=== PATIENT | female | born 1960 | race Asian ===

== ENCOUNTER 2017-04-08 20:27 | Observation (INO) ==
[2017-04-08] MEDS ORDERED: *HR* Morphine 2 MG/ML SYRINGE IVP ONE ×2 (20:54→21:38)
[2017-04-08] MEDS ORDERED: *HR* Labetalol 100 MG/20 ML MDV IVP ONE (20:54)
[2017-04-08] MEDS ORDERED: Ondansetron 4 MG/2 ML VIAL IVP ONE ×2 (20:54→21:38)
--- NOTE | 2017-04-08 20:57 | Emergency Department Note ---
Disposition Clinical Impression: Hypertensive emergency Headache Qualifiers: Headache type: unspecified Headache chronicity pattern: acute headache Intractability: not intractable Qualified Code(s): R51 - Headache Hypertension Qualifiers: Hypertension type: unspecified Qualified Code(s): I10 - Essential (primary) hypertension Disposition: Admitted As Inpatient Condition: Fair Referrals: Patricia Fernandez MD [Primary Care Provider] - Forms: ED Satisfaction Letter General Adult HPI - General Chief complaint: ED Nausea/Vomiting/Diarrhea Stated complaint: n/v, dizzy Time Seen by Provider: 04/08/17 20:43 Source: patient Nursing Notes Reviewed: Yes Vital Signs Reviewed: Yes - History of Present Illness HPI Narrative: 56-year-old female presents emergency Department with one-day history of headache and dizziness. Patient has a history of hypercholesterolemia and non- medication requiring hypertension. Last evaluated summertime. Patient does not speak Estonian she speaks Korean and board setter was used for history and physical. Symptoms started sometime earlier today she says she feels dizzy almost like the room is spinning she does not feel like she is going to pass out she feels some generalized weakness as well also with a significant headache which she cannot further describe other than a minor head. No fevers or chills no abdominal pain. No chest pain or short of breath. Onset (ago): hour(s) Location: head Radiation: non-radiation Pain Severity: moderate Pain Scale: 7 Quality: burning Consistency: constant Improves with: nothing Worsens with: nothing Associated symptoms: Reports: denies other symptoms - Related Data Home Medications Medication Instructions Recorded Confirmed Cholesterol Med 01/07/16 Allergies Allergy/AdvReac Type Severity Reaction Status Date / Time No Known Allergies Allergy Verified 01/07/16 12:45 All systems ED: reviewed and negative except as stated. Constitutional: Reports: as per HPI Eyes: Reports: as per HPI. Denies: eye pain ENT ED: Reports: as per HPI Cardiovascular: Reports: as per HPI Respiratory: Reports: as per HPI Gastrointestinal: Reports: as per HPI Musculoskeletal: Reports: as per HPI Neurological: Reports: headache Psychiatric: Reports: as per HPI Endocrine: Reports: as per HPI Past Medical History - Past Medical History Attestation: Yes The following information was validated with the patient. Medical history: Reports: hypertension Psychiatric history: Reports: no psych history - Social History Smoking Status: Never smoker Smokeless Tobacco Status: No Alcohol use: Reports: rarely Drug use: Reports: none Physical Exam - General Limitations: no limitations General appearance: alert - Head Head exam: atraumatic - Eye Eye exam: Present: normal appearance, PERRL, EOMI - ENT ENT exam: normal exam - Neck Neck exam: Present: normal inspection - Chest Chest inspection: Present: normal inspection - Respiratory Respiratory exam: Present: normal lung sounds bilaterally - Cardiovascular Cardiovascular exam: Present: regular rate, normal rhythm - Abdominal Exam Abdominal exam: Present: soft, Non-Tender - Extremities Exam Extremities exam: Present: normal inspection - Expanded Lower Extremity Exam Hip/Pelvis exam: Present: normal inspection Neurovascular/Tendon exam: Present: normal capillary refill - Back Exam Back exam: Present: normal inspection - Neurological Exam Neurological exam: Present: alert, oriented X3 - Psychiatric Psychiatric exam: Present: normal affect, normal mood Course - Consultations Consultation #1: Discussed with hospitalist at 10:30 PM agreed to admit patient. Vital Signs Temperature 98 F 04/08/17 20:32 Pulse Rate 94 04/08/17 20:32 Respiratory Rate 12 04/08/17 20:32 Blood Pressure 241/143 04/08/17 20:32 O2 Sat by Pulse Oximetry 98 04/08/17 20:32 Temperature 98 F 04/08/17 20:32 Pulse Rate 86 04/08/17 22:13 Respiratory Rate 14 04/08/17 22:13 Blood Pressure 155/94 04/08/17 22:13 O2 Sat by Pulse Oximetry 100 04/08/17 22:13 Oxygen Delivery Oxygen Delivery Room Air Medical Decision Making - MDM Narrative Medical decision making narrative: We will do workup for hypertensive urgency. We will get a CT scan ahead and well as lab testing. We will also treat patient's blood pressure not normalize but to get it down into more tolerable level. May admit patient to the hospital. Patient's blood pressure was improved throughout her stay. CT the head revealed no acute abnormalities. However after 2 doses of antiemetics as well as 2 doses of morphine. Patient still is complaining of headache and dizziness. With intractable headache and the recent hypertension, more comfortable made the patient a hospital. Will discuss case with the hospitalist and arrange for admission for pain management and control of her hypertension. - Lab Data Lab results reviewed: Yes I reviewed the patient's lab results. Result diagrams: 04/08/17 21:02 04/08/17 21:02 Lab Results 04/08/17 04/08/17 04/08/17 Range/Units 21:02 21:02 21:02 WBC 8.6 (4.3-11.1) K/mcL RBC 4.94 (3.82-4.97) M/mcL Hgb 14.5 (11.5-15.4) g/dL Hct 46.2 H (35.3-44.9) % MCV 93.5 (83.0-100.0) fL MCH 29.4 (28.0-33.3) pg MCHC 31.4 L (31.6-35.5) g/dL RDW 12.4 (11.5-14.5) % Plt Count 339 (140-400) K/mcL MPV 10.2 (9.4-12.4) fL Immature Gran % 0.2 (0-4) % Seg Neutrophils % 52.7 % Lymphocytes % 37.7 % Monocytes % 7.9 % Eosinophils % 1.2 % Basophils % 0.3 % Neutrophils # 4.6 (1.6-8.9) K/mcL Lymphocytes # 3.3 (0.6-4.6) K/mcL Monocytes # 0.7 (0.0-1.3) K/mcL Eosinophils # 0.1 (0.0-0.6) K/mcL Basophils # 0.0 (0.0-0.2) K/mcL Sodium 141 (136-145) mEq/L Potassium 3.9 (3.5-4.5) mEq/L Chloride 103 (98-109) mEq/L Carbon Dioxide 33 H (19-29) mEq/L BUN 9 (7-20) mg/dL Creatinine 0.74 (0.57-1.11) mg/dL Est GFR ( Amer) > 60 (> 60) Est GFR (Non-Af Amer) > 60 (> 60) BUN/Creatinine Ratio 12 (6-26) Glucose 164 H (70-99) mg/dL Calculated Osmolality 294 (280-300) Calcium 9.5 (8.6-10.8) mg/dL Troponin I 0.01 (0-0.03) ng/mL TSH 2.329 (0.350-4.840) mcIU/mL - Radiology Data Radiology results reviewed: Yes I reviewed the patient's radiology results. - EKG Data EKG #1 EKG attestation: Yes I reviewed and interpreted this EKG. EKG shows normal: sinus rhythm Rate: normal Rhythm: NSR When compared to previous EKG there are: no significant changes Interpretation: no acute changes Critical Care Time Critical Care Time: Yes Total Critical Care Time: 35 Attestation: Critical care time 35 minutes for hypertensive emergency requiring IV antihypertensive.
[2017-04-08 21:13] LABS: Basophils % 0.3 %; Eosinophils # 0.1 K/mcL (0.0-0.6); Eosinophils % 1.2 %; Hematocrit 46.2 % (35.3-44.9); Hemoglobin 14.5 g/dL (11.5-15.4); Immature Granulocytes % 0.2 % (0-4); Lymphocytes # 3.3 K/mcL (0.6-4.6); Lymphocytes % 37.7 %; Mean Corpuscular HGB Conc 31.4 g/dL (31.6-35.5); Mean Corpuscular Hemoglobin 29.4 pg (28.0-33.3); Mean Corpuscular Volume 93.5 fL (83.0-100.0); Mean Platelet Volume 10.2 fL (9.4-12.4); Monocytes # 0.7 K/mcL (0.0-1.3); Monocytes % 7.9 %; Neutrophils # 4.6 K/mcL (1.6-8.9); Platelet Count 339 K/mcL (140-400); Red Blood Count 4.94 M/mcL (3.82-4.97); Red Cell Distribution Width 12.4 % (11.5-14.5); Segmented Neutrophils % 52.7 %
[2017-04-08 21:25] LABS: BUN/Creatinine Ratio 12 (6-26); Blood Urea Nitrogen 9 mg/dL (7-20); Calcium 9.5 mg/dL (8.6-10.8); Carbon Dioxide 33 mEq/L (19-29); Chloride 103 mEq/L (98-109); Glucose 164 mg/dL (70-99); Osmolality,Calculated 294 (280-300); Potassium 3.9 mEq/L (3.5-4.5); Sodium 141 mEq/L (136-145); eGFR For African Americans > 60 (> 60); eGFR For Non-African Americans > 60 (> 60)
[2017-04-08 21:46] LABS: Thyroid Stimulating Hormone 2.329 mcIU/mL (0.350-4.840)
[2017-04-08] MEDS ORDERED: Ondansetron 4 MG/2 ML VIAL IVP PRN (23:50)
[2017-04-08] MEDS ORDERED: Naloxone 0.4 MG/ML INJ IVP PRN (23:50)
--- NOTE | 2017-04-09 00:17 | Internal Med History&Physical ---
<EugeniacaldannyLuis E silva - Last Filed: 04/09/17 01:53> Date of Encounter: 04/09/17 Time of Encounter: 23:00 Assessment and Plan (1) Hypertensive crisis Current visit: Yes Status: Acute BP upon presentation to ER was 241/143. She was given a dose of labetalol. BP current at 171/108. Neurological assessment was normal. Head CT shows no signs of acute intracranial abnormalities. Creatinine level is normal. Troponin was negative. EKG shows a sinus rhythm with no acute ischemic changes when compared to EKG from 06/03/15. Treatment goal is to keep the SBP between 160-180 for the first 24 hours. - Hydralazine 10 mg IV PRN with parameters. - Low salt diet. - Zofran PRN for nasuea. - Add BECKY-I to medications starting in morning. - Echocardiogram. - Neuro checks q2hr. (2) Headache Current visit: Yes Status: Acute - Tylenol PRN. Qualifiers: Headache type: unspecified Headache chronicity pattern: acute headache Intractability: not intractable Qualified Code(s): R51 - Headache (3) Hypercholesteremia Current visit: Yes Status: Acute - Lipid panel. - Continue home med of lovastatin 40 qd. (4) DVT prophylaxis Current visit: Yes Status: Acute - Lovenox SQ. Internal Medicine - H&P: HPI Chief complaint: SALTER, dizziness, nausea Admitted From: Emergency Dept History of present illness: Ms. Rebollar is a 56 year old female with a PMH of HTN and hypercholesterolemia that presents for SALTER, dizziness, and nausea. She says her symptoms have been occurring for the past 3-4 days. The SALTER have been intermitten, as well has her nausea and dizziness. She denies any vomiting. Patient says the she has had blood pressure issues for the past year, but has never experienced an episode like this before. She has never been on any BP medications. She denies any syncope, focal deficits, weakness, or slurring of speech. She denies any recent illness, fever, chills, chest pain, SOB, abdominal pain, diarrhea, constipation , dysruia, or hematuria. History was obtained through official court interpreter who was at bedside. She was brought to the ER with an elevated BP of 241/143. She was given labetalol. Past Med Surg Social Fam HX - Past Medical History Medical history: hypertension Psychiatric history: no psych history - Social History Smoking Status: Never smoker Smokeless Tobacco Status: No Alcohol use: rarely Drug use: none Internal Medicine - H&P: Meds Cholesterol Med 01/07/16 [History] 3 Allergy/AdvReac Type Severity Reaction Status Date / Time No Known Allergies Allergy Verified 01/07/16 12:45 All Systems PM: A 10-system review of systems was performed and is negative for pertinent findings except as documented above in the HPI. - Constitutional Constitutional: no chills, no fever(s), no weakness - EENT Eyes: no blurry vision, no change in vision, no spots in vision - Cardiovascular Cardiovascular ROS IM: lightheadedness, no chest pain, no dyspnea, no palpitations, no syncope - Respiratory Respiratory: no cough, no dyspnea, no wheezing - Gastrointestinal Gastrointestinal: nausea, no abdominal pain, no constipation, no diarrhea, no vomiting - Genitourinary Genitourinary: no dysuria, no hematuria - Musculoskeletal Musculoskeletal ROS IM: no muscle weakness, no numbness, no tingling - Neurological Neurological ROS: dizziness, headache(s), no focal weakness, no loss of vision, no numbness, no tingling, no weakness - Constitutional Vitals: Temp Pulse Resp BP Pulse Ox 97.8 F 68 20 182/102 98 04/08/17 23:50 04/08/17 23:50 04/08/17 23:50 04/08/17 23:50 04/08/17 23:50 General appearance: Present: A&O X 3, no acute distress, answers questions appropriately - Eye Eye exam: Present: EOMI, PERRL. Absent: nystagmus Pupils: Present: PERRL - ENT ENT exam: Present: mucous membranes moist - Respiratory Respiratory exam: Present: CTAB. Absent: rales, respiratory distress, rhonchi, wheezes - Cardiovascular Cardiovascular exam: Present: RRR, +S1, +S2. Absent: tachycardia - GI/Abdominal GI/Abdominal exam: Present: normal bowel sounds, soft. Absent: guarding, rebound, tenderness - Extremities Exam Extremities exam: Present: full ROM, normal capillary refill, radial pulses palpable and symmetrical. Absent: cyanotic, pedal edema, tenderness Additional comments: Pedal pulses intact and symmetrical bilaterally. - Neurological Exam Neurological exam: Present: alert, CN II-XII intact, oriented X3, no focal deficits, strengths equal and symetr throughout. Absent: facial droop Additional comments: Unable to obtain reflexes as patient was tense and unable to relax limbs. Internal Med - H&P Results - Labs CBC & Chem 7: 04/09/17 00:58 04/09/17 00:58 <Roldan Becker - Last Filed: 04/09/17 02:41> Date of Encounter: 04/09/17 Time of Encounter: 02:32 Past Med Surg Social Fam HX - Past Surgical History Surgical History: other (unknown -- language barrier --> unable to inquire) - Family History Mother History Unknown: Yes Father History Unknown: Yes ROS unobtainable: other (language barrier; no official court interpreter present when I saw patient) - Constitutional Vitals: Temp Pulse Resp BP Pulse Ox 97.8 F 68 20 182/102 98 04/08/17 23:50 04/08/17 23:50 04/08/17 23:50 04/08/17 23:50 04/08/17 23:50 General appearance: Present: no acute distress - Head Head exam: Present: atraumatic, normal inspection - Eye Eye exam: Present: EOMI, PERRL. Absent: scleral icterus Pupils: Present: normal accommodation - ENT ENT exam: Present: mucous membranes moist, normal exam - Neck Neck exam general surgery: Present: full ROM, supple. Absent: tenderness, nuchal rigidity, thyromegaly - Respiratory Respiratory exam: Present: CTAB. Absent: chest wall tenderness, rales, rhonchi , wheezes - Cardiovascular Cardiovascular exam: Present: RRR, +S1, +S2. Absent: diastolic murmur, systolic murmur - GI/Abdominal GI/Abdominal exam: Present: normal bowel sounds, soft. Absent: hepatomegaly, splenomegaly, tenderness - Extremities Exam Extremities exam: Present: full ROM, normal capillary refill, radial pulses palpable and symmetrical. Absent: calf tenderness, cyanotic, tenderness - Back Exam Back exam: Absent: CVA tenderness (L), CVA tenderness (R) - Neurological Exam Neurological exam: Present: no focal deficits, strengths equal and symetr throughout - Psychiatric Psychiatric exam: Present: normal affect, normal mood - Skin Skin exam: Present: dry, warm. Absent: rash Internal Med - H&P Results - Labs CBC & Chem 7: 04/09/17 00:58 04/09/17 00:58 Labs: Short CBC 04/09/17 Range/Units 00:58 WBC 10.1 (4.3-11.1) K/mcL Hgb 13.8 (11.5-15.4) g/dL Hct 43.3 (35.3-44.9) % Plt Count 317 (140-400) K/mcL BMP 04/09/17 00:58 Sodium 141 Potassium 4.7 H Chloride 105 Carbon Dioxide 32 H BUN 10 Creatinine 0.70 Glucose 120 H Calcium 9.6 Liver Function 04/09/17 Range/Units 00:58 Total Bilirubin 0.5 (0.2-1.2) mg/dL AST 40 H (5-34) Units/L ALT 63 H (0-55) Units/L Alkaline Phosphatase 209 H (38-126) Units/L Albumin 3.7 (3.5-5.0) g/dL - EKG Data -: EKG Interpreted by Myself - EKG Data Prior EKG available for review: no EKG comments: 04/09/17 02:35 NSR; no acute changes - Diagnostic Studies Chest x-ray Status: image reviewed by me (negative) - Attending Attestation I discussed the patient INAJA, PMH, ROS, lab data, and exam findings with Dr. Suh. I then saw and examined patient independently as well. Patient is sleeping and easily arousable. She appears in no distress. BP presently is 182/100. [employer] Recruiter is not present and, other than hello and thank you, patient does not seem to understand Malay. Exam is unremarkable as I detailed above. We will trend troponins, monitor with neurochecks closely, and transition to oral antihypertensives later today if BP remains stable. Other than my comments above and noted exam findings, I agree with Dr. Suh.
[2017-04-09] MEDS: Acetaminophen 325 MG TABLET PO PRN ×2 (00:33→12:17)
[2017-04-09 01:34] LABS: Hematocrit 43.3 % (35.3-44.9); Hemoglobin 13.8 g/dL (11.5-15.4); Mean Corpuscular HGB Conc 31.9 g/dL (31.6-35.5); Mean Corpuscular Hemoglobin 29.6 pg (28.0-33.3); Mean Corpuscular Volume 92.9 fL (83.0-100.0); Mean Platelet Volume 10.2 fL (9.4-12.4); Platelet Count 317 K/mcL (140-400); Red Blood Count 4.66 M/mcL (3.82-4.97); Red Cell Distribution Width 12.6 % (11.5-14.5)
[2017-04-09 01:45] LABS: Alanine Aminotransferase 63 Units/L (0-55); Albumin 3.7 g/dL (3.5-5.0); Albumin/Globulin Ratio 0.9 (1.1-2.2); Alkaline Phosphatase 209 Units/L (38-126); Aspartate Amino Transferase 40 Units/L (5-34); BUN/Creatinine Ratio 14 (6-26); Bilirubin,Total 0.5 mg/dL (0.2-1.2); Blood Urea Nitrogen 10 mg/dL (7-20); Calcium 9.6 mg/dL (8.6-10.8); Carbon Dioxide 32 mEq/L (19-29); Chloride 105 mEq/L (98-109); Globulin 4.1 g/dL (2.4-3.5); Glucose 120 mg/dL (70-99); Osmolality,Calculated 292 (280-300); Potassium 4.7 mEq/L (3.5-4.5); Sodium 141 mEq/L (136-145); Total Protein 7.8 g/dL (6.0-8.3); eGFR For African Americans > 60 (> 60); eGFR For Non-African Americans > 60 (> 60)
[2017-04-09 05:39] LABS: Hematocrit 41.7 % (35.3-44.9); Hemoglobin 13.2 g/dL (11.5-15.4); Mean Corpuscular HGB Conc 31.7 g/dL (31.6-35.5); Mean Corpuscular Hemoglobin 29.3 pg (28.0-33.3); Mean Corpuscular Volume 92.7 fL (83.0-100.0); Mean Platelet Volume 9.9 fL (9.4-12.4); Platelet Count 306 K/mcL (140-400); Red Cell Distribution Width 12.6 % (11.5-14.5)
[2017-04-09] MEDS ORDERED: *HR* Enoxaparin 40 MG/0.4 ML SYRINGE SQ SCH (06:00)
[2017-04-09] MEDS ORDERED: *HR* Heparin 5,000 UNIT/ML VIAL SQ SCH (06:00)
[2017-04-09 07:13] VITALS: BP 131/77
[2017-04-09 12:51] LABS: Hepatitis A Antibody IgM Nonreactive (Nonreactive); Hepatitis B Core IgM Nonreactive (Nonreactive); Hepatitis B Surface Antigen Nonreactive (Nonreactive); Hepatitis C Virus Antibody Nonreactive (Nonreactive)
--- NOTE | 2017-04-09 14:14 | Discharge Summary ---
Date of Encounter: 04/09/17 Time of Encounter: 14:12 - Discharge Diagnosis (1) Hypertensive crisis Priority: Primary Status: Resolved (2) Headache Priority: Secondary Status: Acute Qualifiers: Headache type: unspecified Headache chronicity pattern: acute headache Intractability: not intractable Qualified Code(s): R51 - Headache (3) Hypercholesteremia Priority: Secondary Status: Acute (4) DVT prophylaxis Priority: Secondary Status: Acute - Discharge Medications Prescriptions: amLODIPine [Norvasc] 5 mg PO DAILY #30 tablet Home Medications: amLODIPine [Norvasc] 5 mg PO DAILY #30 tablet 04/09/17 [Rx] Allergies/Adverse Reactions: 3 Allergy/AdvReac Type Severity Reaction Status Date / Time No Known Allergies Allergy Verified 01/07/16 12:45 Date of admission: 04/09/17 02:42 Primary care physician: Patricia Fernandez Discharging clinician: Koki Cook Anticipated date of discharge: 04/09/17 - Patient Status Disposition: Home, Self-Care Condition: Good Functional capacity at discharge: independent ambulation Overall status at discharge: patient is progressing back to baseline - Discharge Instructions Instructions: Chronic Hypertension (DC) Follow Up With: Patricia Fernandez MD [Primary Care Provider] - (in 1 week) - Diet and Activity Activity: increase activity as tolerated Diet: low fat, low cholesterol, low salt diet Hospital course: Ms. Rebollar is a 56 year old female patient who presented to the ER with complaints of headaches dizziness and nausea. She has a history of hypertension and hypercholesterolemia and has been taking lovastatin for several years. She had a blood pressure of 241/143 on presentation to the ER. She denied any chest pain, focal weakness numbness or slurred speech. No recent medication changes. CT scan of the head was negative for any acute bleed or stroke. Chest x-ray did not show any acute cardiopulmonary disease. She was given labetalol in the ER intravenously and since then her blood pressure has improved. She has not required any further doses of intravenous medications and her blood pressure has remained well controlled. Patient also had mild elevation in her liver enzymes with AST of 40, ALT of 63 and alkaline phosphatase of 209. Liver ultrasound was done and it showed normal echogenicity of the liver with normal gallbladder and CBD. Hepatitis viral panel was also negative. Most likely her elevated liver enzymes could be due to statin use. At this time I recommend holding off on statin until she gets her liver function panel rechecked. 2-D echocardiogram was done today and patient has a normal ejection fraction of 65% with mild left ventricle and diastolic dysfunction likely due to chronic uncontrolled hypertension. I will place her on amlodipine to control her blood pressure. She is clinically stable to be discharged home at this time. - Time Spent with Patient Total time spent providing and/or coordinating discharge services: Less than 30 minutes (25 min) - Constitutional Vitals: Temp Pulse Resp BP Pulse Ox 97.9 F 77 16 131/77 98 04/09/17 07:11 04/09/17 07:11 04/09/17 07:11 04/09/17 07:11 04/09/17 07:11 General appearance: Present: cooperative, no acute distress Exam: Patient not able to answer questions as she does not speak Serbian and there is no certified lactation counselor available at this time. - Neck Neck exam general surgery: Present: supple, trachea midline. Absent: lymphadenopathy - Cardiovascular Cardiovascular exam: Present: RRR, +S1, +S2. Absent: diastolic murmur, gallop, rubs, systolic murmur - GI/Abdominal GI/Abdominal exam: Present: normal bowel sounds, soft, no peritoneal signs. Absent: distended, tenderness - Extremities Exam Extremities exam: Present: warm, radial pulses palpable and symmetrical. Absent : calf tenderness, cyanotic, pedal edema - Neurological Exam Neurological exam: Present: alert, no focal deficits. Absent: facial droop, speech deficit
--- NOTE | 2017-04-11 18:10 | Electrocardiograph Report ---
[place] [id number] Test Date: 2017-04-08 Pat Name: Riley Rebollar Department: 104 Room: [facility] Gender: F Iso Coordinator: JOHN : 1960 Requested By: Kai Marvin Order Number: [id number] Reading MD: Sharan Walker DO Measurements Intervals [place] Rate: 90 P: 52 AR: 161 QRS: 56 QRSD: 65 T: 46 QT: 336 QTc: 384 Interpretive Statements SINUS RHYTHM LEFT ATRIAL ENLARGEMENT POSSIBLE LEFT VENTRICULAR HYPERTROPHY NONSPECIFIC T-WAVE ABNORMALITY Electronically Signed On 04-11-2017 18:09:03 EST by Sharan Walker DO
== END 2017-04-09 17:08 | disposition home or self-care (01) | DRG 199 ==
LOC: EMEROO 20:27 → 2ANU 20:27 → 2NENU 22:47
PROVIDERS: ADMIT Internal Medicine Hematology & Oncology; ATTEND Internal Medicine